=== PATIENT | male | born 1975 | race Hispanic/Latino ===

== ENCOUNTER 2020-12-12 00:28 | Emergency (ER) | payer OTHER ==
[~2020-12-12] VITALS: Ht 177.8 cm; Wt 81.6 kg
[2020-12-12 01:17] VITALS: BP 136/85
[2020-12-12] MEDS ORDERED: ONDANSETRON 4MG INJ IVP ONE (01:30)
[2020-12-12] MEDS ORDERED: 0.9%NACL 1000ML 1,000 ML IV ONE (01:30)
[2020-12-12 01:53] LABS: BASOPHILS % (AUTO) 0.3 % (0.0-5.0); EOSINOPHILS % (AUTO) 0.3 % (0.0-8.0); HEMATOCRIT 47.7 % (42-54); LYMPHOCYTES % (AUTO) 6.4 % (21.0-51.0); MEAN CORPUSCULAR HEMOGLOBIN 31.3 pg (27.0-33.0); MEAN CORPUSCULAR VOLUME 89.5 fL (79-99); MONOCYTES % (AUTO) 6.4 % (3.0-13.0); PLATELET COUNT (AUTO) 177 K/uL (130-400); RED BLOOD CELL COUNT(AUTO) 5.33 MIL/uL (4.50-6.20); RED CELL DISTRIBUTION WIDTH 13.3 % (11.0-15.5); WHITE BLOOD COUNT (AUTO) 8.8 K/uL (4.8-10.8)
[2020-12-12 02:09] LABS: POTASSIUM 4.2 mmol/L (3.5-5.1)
[2020-12-12 02:11] LABS: ALBUMIN 4.3 g/dL (3.5-5.0); BILIRUBIN,TOTAL 0.9 mg/dL (0.2-1.0); TOTAL PROTEIN, SERUM 7.7 g/dL (6.0-8.3)
[2020-12-12] MEDS ORDERED: METO-296 PO (02:49)
[2020-12-12] MEDS ORDERED: ONDA4TAB10 PO (02:49)
== END 2020-12-12 03:36 | disposition home or self-care (01) ==
LOC: EDH 00:28
DX: E86.9 Volume depletion, unspecified (principal); R19.7 Diarrhea, unspecified; R11.10 Vomiting, unspecified; Z79.899 Other long term (current) drug therapy
CPT/HCPCS: 36415; 80053; 85025; 96361; 96374; 99283; J2405; J7030

== ENCOUNTER → 2021-02-11 | Outpatient (CLI) | payer OTHER ==
[~2021-02-11] MED LIST: METO-296 PO; ONDA4TAB10 PO
== END | disposition home or self-care (01) ==
LOC: CANPRECLI → RAH 10:58
PROVIDERS: ATTEND Internal Medicine Gastroenterology
DX: R10.11 Right upper quadrant pain (principal); R14.0 Abdominal distension (gaseous)
CPT/HCPCS: 78264; A9541

== ENCOUNTER 2024-09-07 14:03 | Emergency (ER) | payer OTHER, MEDICARE ==
[~2024-09-07] VITALS: Ht 177.8 cm; Wt 104.3 kg
[~2024-09-07 14:03] MED LIST changes: +ONDA-243 PO; -ONDA4TAB10 PO
[2024-09-07 14:29] LABS: IMMATURE GRANULOCYTE ABSOLUTE 0.07 K/uL (0-1); NUCLEATED RED BLOOD CELLS 0.0 % (0.0-0.19); PLATELET COUNT (AUTO) 220 K/uL (130-400); RED BLOOD CELL COUNT(AUTO) 5.36 MIL/uL (4.50-6.20); RED CELL DISTRIBUTION WIDTH 13.1 % (11.0-15.5); WHITE BLOOD COUNT (AUTO) 10.4 K/uL (4.8-10.8)
[2024-09-07 14:50] LABS: CREATININE 1.0 mg/dL (0.5-1.3); GLOMERULAR FILTR. RATE CALC 92 mL/min (>90); GLUCOSE,RANDOM 111 mg/dL (70-105); SODIUM SERUM 137 mmol/L (136-145); UREA NITROGEN, BLOOD 9 mg/dL (7-18)
[2024-09-07 14:52] LABS: ALCOHOL, BLOOD < 3 mg/dL (0-10)
--- NOTE | 2024-09-07 15:15 | ERN ---
ED Note History of Present Illness Stated Complaint: ANXIETY Chief Complaint: Anxiety/Panic Attack Time Seen by MD: 14:04 Time Seen by Midlevel: 14:08 Dictation: 48-year-old male with no past medical history coming in with complaints of an anxiety attack. The family member at visits at that the patient called him until he was having a panic attack and to return to the hospital. Patient is complaining of dry mouth, you numbness and tingling sensation to his body. Allergies: Coded Allergies: No Known Drug Allergies (Unverified Allergy, Unknown, 12/12/20) Home Meds Active Scripts Metoclopramide HCl (Reglan) 10 Mg Tablet, 10 MG PO TIDP, #20 TAB 0 Refills Prov:ABRAHAM MINA MD 12/12/20 Ondansetron (Ondansetron Odt) 4 Mg Tab.rapdis, 4 MG PO Q6HPRN, #20 TAB 0 Refills Prov:ABRAHAM MINA MD 12/12/20 Past Medical History Past Medical History: Anxiety Surgical History: None Review of System Dictation Constitutional: Negative for fever,chills, and weight loss Eyes: Negative for injury, pain,redness, and discharge ENT: Negative for injury,pain or swelling Cardiovascular: Negative for chest pain, palpitations, and edema Respiratory: Negative for shortness of breath, cough, and wheezing, Abdomen/GI: Negative for abdominal pain, nausea, vomiting, diarrhea, and constipation Back: Negative for injury and pain : Negative for injury, bleeding and discharge MS/Extremity: Negative for injury and deformity Skin: Negative for rash, and discoloration Neuro: Negative for headache, weakness, numbness, tingling, and seizure Psych: Anxiety Review of Systems: was completed Initial Vital Sign VS Vital Signs Date Time Temp Pulse Resp B/P (MAP) Pulse Ox O2 Delivery O2 Flow Rate FiO2 09/07/24 14:03 98.8 87 20 137/91 99 0 09/07/24 14:23 Room Air* 21 Physical Exam Dictation General: awake, alert, NAD Head/Face: Normocephalic, atraumatic Eyes: PERRL, EOMI, vision at baseline ENT: oral cavity clear, TMs clear, no signs of infection Neck: Trachea midline, supple, no nuchal rigidity Cardiovascular: RRR, normal S1/S2, No MRGs, no JVD Respiratory: CTAB, no respiratory distress, No rales or wheezes, patient is hyperventilating Abdomen: Soft, non-tender, non-distended, normal bowel sounds, no guarding or rebound. Skin: Warm, dry, normal turgor, no rash MS/Extremity: Pulses equal, no cyanosis, neurovascular intact, FROM Neuro: COAx4, GCS 15, strength 5/5, CN 2-12 intact, normal cerebellar exam, normal gait, Psych: Normal behavior, mood, and affect normal, anxious Results (Laboratory/Radiology) Laboratory/Radiology Laboratory Tests Test 09/07/24 14:17 09/07/24 17:18 White Blood Count 10.4 K/uL (4.8-10.8) Red Blood Count 5.36 MIL/uL (4.50-6.20) Hemoglobin 16.7 g/dL (14.0-18.0) Hematocrit 46.0 % (42-54) Mean Corpuscular Volume 85.8 fL (79-99) Mean Corpuscular Hemoglobin 31.2 pg (27.0-33.0) Mean Corpuscular Hemoglobin Concent 36.3 g/dL (32.0-36.0) H Red Cell Distribution Width 13.1 % (11.0-15.5) Platelet Count 220 K/uL (130-400) Mean Platelet Volume 9.2 fL (7.5-10.5) Immature Granulocyte % (Auto) 0.7 % (0-1) Neutrophils (%) (Auto) 74.4 % (40.0-77.0) Lymphocytes (%) (Auto) 17.4 % (21.0-51.0) L Monocytes (%) (Auto) 6.9 % (3.0-13.0) Eosinophils (%) (Auto) 0.3 % (0.0-8.0) Basophils (%) (Auto) 0.3 % (0.0-5.0) Neutrophils # (Auto) 7.8 K/uL (1.8-7.7) H Lymphocytes # (Auto) 1.8 K/uL (1.0-4.8) Monocytes # (Auto) 0.7 K/uL (0.1-1.0) Eosinophils # (Auto) 0.03 K/uL (0.00-0.70) Basophils # (Auto) 0.03 K/uL (0.00-0.20) Absolute Immature Granulocyte (auto 0.07 K/uL (0-1) Nucleated Red Blood Cells 0.0 % (0.0-0.19) Red Blood Cell Morphology OVALOCYTES 1+ Sodium Level 137 mmol/L (136-145) Potassium Level 3.6 mmol/L (3.5-5.1) Chloride Level 101 mmol/L (101-111) Carbon Dioxide Level 20 mmol/L (21-32) L Blood Urea Nitrogen 9 mg/dL (7-18) Creatinine 1.0 mg/dL (0.5-1.3) Glomerular Filtration Rate Calc 92 mL/min (>90) Random Glucose 111 mg/dL (70-105) H Total Calcium 9.1 mg/dL (8.5-10.1) Ammonia < 10 umol/L (11-32) L Troponin I High Sensitivity 6 ng/L (4-75) Serum Alcohol < 3 mg/dL (0-10) Urine Opiates Screen NEGATIVE (NEGATIVE) Urine Barbiturates Screen NEGATIVE (NEGATIVE) Urine Phencyclidine Screen NEGATIVE (NEGATIVE) Urine Amphetamines Screen NEGATIVE (NEGATIVE) Urine Benzodiazepines Screen NEGATIVE (NEGATIVE) Urine Cocaine Screen NEGATIVE (NEGATIVE) Urine Marijuana (THC) Screen NEGATIVE (NEGATIVE) Labs Reviewed?: Yes EKG Comment: EKGs done at 2:26 p.m.. Sinus rhythm at a rate of 78. No STEMI interpreted by ER MD CT Scan Comment: [place] [id number] IMAGING REPORT Signed PATIENT: CANDICE LEMA MR#: [id number] : 1975 SEX: M AGE: 48 LOCATION: ED ORDER [id number] STATUS: REG ER REPORT#: [id number] SERVICE 155 REASON: el ORDERING PHYSICIAN: POLLY HEADLEY NP PROCEDURE: HEAD WO - CT HEAD/BRAIN W/O CONTRAST EXAM: CT Head Without IV contrast. CLINICAL HISTORY: el TECHNIQUE: Axial computed tomography images of the head/brain without intravenous contrast. COMPARISON: None provided. FINDINGS: BRAIN: No evidence of acute hemorrhage. No mass lesion. No CT evidence for acute territorial infarct. No midline shift or extra-axial collections. VENTRICLES: No hydrocephalus. ORBITS: The orbits are unremarkable. SINUSES AND MASTOIDS: The paranasal sinuses and mastoid air cells are clear. BONES: No fracture. SOFT TISSUES: Unremarkable. IMPRESSION: No acute intracranial abnormality. /[place] DICTATED BY: VIVIEN ALLEN MD DATE: 09/07/241833 ELECTRONICALLY SIGNED BY: VIVIEN ALLEN MD DATE: 09/07/241833 ED Course ED Course Orders Procedure Category Date Status Time Cbc With Differential LAB 09/07/24 Complete 14:09 Basic Metabolic Panel LAB 09/07/24 Complete 14:09 Troponin I High LAB 09/07/24 Complete Sensitivity 14:09 12 Lead Ekg Tracing- EKG 09/07/24 Complete Technical 14:09 Alcohol, Blood LAB 09/07/24 Complete 14:09 Drug Screen Urine LAB 09/07/24 Complete 14:09 Ammonia LAB 09/07/24 Complete 14:09 0.9%Nacl 1000ml (Ns PHA 09/07/24 Complete 1000ml) 14:09 Diazepam 5 Mg/Ml 2 Ml PHA 09/07/24 Complete Syg (Valium 5 Mg/M 14:16 0.9%Nacl 1000ml (Ns PHA 09/07/24 In Process 1000ml) 15:53 Diphenhydramine Hcl PHA 09/07/24 Complete (Benadryl Inj) 15:53 Ketorolac PHA 09/07/24 Complete Tromethamine 15mg/Ml 15:53 Metoclopramide 10 PHA 09/07/24 Complete Mg/2 Ml Vial (Reglan 1 15:53 Ct Head/Brain W/O CT 09/07/24 Resulted Contrast 15:54 Current Medications Medications (Trade) Dose Ordered Sig/Valdemar Route PRN Reason Start Time Stop Time Status Last Admin Dose Admin Diazepam (VALium 5 MG/ML 2 ML SYG) 5 mg ONCE ONCE IVP 09/07/24 14:16 09/07/24 14:17 DC 09/07/24 15:21 Diphenhydramine HCl (BENAdryl INJ) 25 mg ONCE STAT IV 09/07/24 15:53 09/07/24 15:56 DC 09/07/24 16:15 Ketorolac Tromethamine (toRADol) 15 mg ONCE STAT IV 09/07/24 15:53 09/07/24 15:56 DC 09/07/24 16:15 Metoclopramide HCl (regLAN 10MG IV) 10 mg ONCE STAT IVP 09/07/24 15:53 09/07/24 15:56 DC 09/07/24 16:15 Sodium Chloride 1,000 ml @ 100 mls/hr Q10H STAT IV 09/07/24 15:53 09/08/24 01:52 09/07/24 16:15 Sodium Chloride 1,000 ml @ 1,000 mls/hr Q1H STAT IV 09/07/24 14:09 09/07/24 15:08 DC 09/07/24 15:17 Vital Signs Date Time Temp Pulse Resp B/P (MAP) Pulse Ox O2 Delivery O2 Flow Rate FiO2 09/07/24 17:00 98.1 85 18 134/85 99 Room Air* 0 09/07/24 16:20 98.1 85 18 142/85 100 Room Air* 0 09/07/24 15:24 98.1 89 18 144/84 99 Room Air* 0 09/07/24 14:23 98.1 81 16 144/71 98 Room Air* 0 09/07/24 14:03 98.8 87 20 137/91 99 0 Medical Decision Making MDM MDM:48-year-old male with no past medical history coming in with complaints of an anxiety attack. The family member at at that the patient called him until he was having a panic attack and to return to the hospital. Patient is complaining of dry mouth, you numbness and tingling sensation to his body. Blood work is unremarkable. Blood work is unremarkable. After fluids and diazepam patient states feels better but now is complaining of a tablet 10 headache. Patient is also complaining of photophobia and phonophobia. Migraine cocktail ordered along with a CT of the head. CT scan showed no acute findings. [facility] will be [facility] educated on red flag symptoms when to come back to the ER. Patient verbalized understanding, answered all questions. Differential diagnosis: Anxiety attack, drug use, dehydration, electrolyte abnormality, Rationale: Tests considered and ordered secondary to shared decision making include: Previous outside records reviewed: Old ER visits. Risk of complication and/or morbidity or mortality of patient management: None Medications-Per medication reconciliation Need for hospitalization: Patient does not meet criteria for hospitalization. Need for emergency major/minor surgery: No There are no social concerns with this patient. Prescription drug management Prescriptions will include symptomatic care Patient's prior external medical records from other ER visits were reviewed by me as indicated. Prior testing and results from previous visits were reviewed. Prior tests were taken into account with medical decision making and resource utilization, independent historian/historians were used to obtain complete medical history. I independently interpreted the test that were performed, results were reviewed by me and considered findings on radiology if ordered. Medical management and examination interpretation discussions were had by me with other qualified healthcare professionals as indicated for the patient's care. DX & DISP Disposition: Discharge Departure Impression: Primary Impression: Anxiety Additional Impression: Headache Condition: Stable Additional Instructions: [facility] for [facility]. You may need to have a further evaluation and started on antianxiety medications. Referrals: BRIAN WAGONER (PCP) Time of Disposition: 18:06 I have reviewed the case, and I agree with, Diagnosis and Plan POLLY HEADLEY NP Sep 07, 2024 15:15
[2024-09-07] MEDS: 0.9%NACL 1000ML 1,000 ML IV STA ×2 (15:17→16:15)
--- NOTE | 2024-09-07 16:33 | EKG ---
[facility] Test Date: 2024-09-07 Test Time: 14:26:06 Pat Name: CANDICE LEMA Department: ED Room: Gender: M Coil [employer]er: [id number] : 1975 Requested By: POLLY HEADLEY Order Number: [id number] Reading MD: Elissa Mirza Measurements Intervals [employer] Rate: 78 P: 21 MT: 133 QRS: -4 QRSD: 95 T: 44 QT: 392 QTc: 446 Interpretive Statements Sinus rhythm No previous ECG available for comparison Electronically Signed On 09-08-2024 08:26:02 CDT by Elissa Mirza Please click the below link to view image of tracing.
[2024-09-07 17:35] LABS: AMPHET/METH SCREEN,URINE NEGATIVE (NEGATIVE); BARBITURATE SCREEN, URINE NEGATIVE (NEGATIVE); CANNABINOID SCREEN,URINE NEGATIVE (NEGATIVE); COCAINE SCREEN,URINE NEGATIVE (NEGATIVE)
--- NOTE | 2024-09-07 17:35 | HMCIMG ---
EXAM: CT Head Without IV contrast. CLINICAL HISTORY: el TECHNIQUE: Axial computed tomography images of the head/brain without intravenous contrast. COMPARISON: None provided. FINDINGS: BRAIN: No evidence of acute hemorrhage. No mass lesion. No CT evidence for acute territorial infarct. No midline shift or extra-axial collections. VENTRICLES: No hydrocephalus. ORBITS: The orbits are unremarkable. SINUSES AND MASTOIDS: The paranasal sinuses and mastoid air cells are clear. BONES: No fracture. SOFT TISSUES: Unremarkable. IMPRESSION: No acute intracranial abnormality. /[place]
[2024-09-07 18:10] VITALS: BP 131/78; PULSE 85; RESP 18; TEMP 98.1; O2SAT 99
== END 2024-09-07 18:28 | disposition home or self-care (01) ==
LOC: EDH 14:03
DX: F41.9 Anxiety disorder, unspecified (principal); R51.9 Headache, unspecified
CPT/HCPCS: 99285; 96374; 96375; 70450; 84484; 80048; 80305; 82140; 85025; 36415; 93005; J1885; J1200; J7030; J3360; J2765